=== PATIENT | female | born 1995 | race Two or more races ===

== ENCOUNTER 2024-03-11 10:43 | Outpatient (AMB) | payer MEDICAID, SELFPAY ==
[2024-03-11 10:49] VITALS: BP 101/64; PULSE 73; RESP 18; TEMP 36.3; O2SAT 98; BMI 32.4
--- NOTE | 2024-03-11 10:49 | PD.GSCLVISIT ---
Vital Signs - [facility] 03/11/24 10:49 Height 1.57 m Height Method Stated Weight 80.399 kg Weight Measurement Method Standing Scale BMI 32.4 BP 101/64 Blood Pressure Source Automatic Cuff Blood Pressure Location Right Upper Arm Position Sitting Respiration 18 Pulse 73 Pulse Source Monitor Temp 97.3 F Temp Source Temporal Artery Scan Pulse Oximetry (%) 98 Oxygen Delivery Method Room Air Med/Allergies Allergies & Medications Allergies No Known Allergies Allergy (Verified 03/11/24 10:49) Medication Reconciliation No Known Home Medications 03/11/24 [History] MA Intake Visit Data Collection New Patient or Established: New Patient (never been to [facility]) Seen by Clinical Staff ONLY (RN/MA): No Reason for Visit:: REFERRAL GALLSTONES Pain Present Currently: No Shooter'S Helper Required: No PCP or OBGYN visit in last 3 months: Yes Hx Now: No Do You Feel Safe at Home: Yes Authorities Contacted: N/A Smoking Status Smoking Status: Never smoker Immunization / Flu Flu Vaccine in the Last 12 Months: No Flu Vaccine Exclusion Criteria: Refused by Patient Past Medical History Social History SMOKING STATUS: Smoking status: Never smoker HPI HPI Narrative 28F presenting with symptomatic cholelithiasis. Pt reports for the past year she has had episodes of epigastric pain radiating to the back; she was during initial diagnosis and gave 6 weeks ago. Pt states she continues to have intermittent episodes of severe pain, not always after eating, but denies any nausea/vomiting, diarrhea or fever. Pt underwent abdominal US at [facility] in September 2023 showing gallstones ROS Review of Systems Systems Reviewed: All systems reviewed, normal except as documented Objective/Exam General General Appearance: alert, cooperative and well groomed Resp Respiratory exam: Absent respiratory distress Abdominal Abdominal exam: Present soft; Absent distention or tenderness Results US at [facility] 09/15/23: Multiple shadowing gallstones in a partially contracted gallbladder. Normal gallbladder wall thickness measuring 2.2mm. No pericholecystic fluid. CBD 2mm Assessment & Plan Diagnosis / Problem List (1) Symptomatic cholelithiasis: Status: Acute Assessment & Plan: 28F presenting with symptomatic cholelithiasis. I explained benefits/risks of surgery including need for conversion to open, bleeding, infection, and injury to nearby structures requiring additional procedures or surgery which would require transfer to another facility. 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
== END 2024-03-11 11:17 | disposition home or self-care (01) ==
LOC: HODSRG 10:43
PROVIDERS: PCP Obstetrics & Gynecology; Referring Provider Obstetrics & Gynecology; Supervising Provider Surgery; Visit Provider Surgery
DX: K80.20 Calculus of gallbladder without cholecystitis without obstruction (principal)
CPT/HCPCS: 99203; G0463

== ENCOUNTER 2024-04-29 11:13 | Outpatient (AMB) | payer MEDICAID, SELFPAY ==
--- NOTE | 2024-04-29 11:18 | PD.GSCLVISIT ---
Vital Signs - [facility] 04/29/24 11:20 Height 1.57 m Height Method Stated Weight 79.52 kg Weight Measurement Method Standing Scale BMI 32.2 BP 110/77 Blood Pressure Source Automatic Cuff Blood Pressure Location Left Upper Arm Position Sitting Respiration 19 Pulse 74 Pulse Source Monitor Temp 96.7 F L Temp Source Temporal Artery Scan Pulse Oximetry (%) 98 Oxygen Delivery Method Room Air Med/Allergies Allergies & Medications Allergies No Known Allergies Allergy (Verified 04/29/24 11:21) Medication Reconciliation oxycodone-acetaminophen 5 mg-325 mg tablet (Percocet) 1 tab PO Q6H PRN pain #10 tabs 04/29/24 [Rx] MA Intake Visit Data Collection New Patient or Established: Established Patient (seen at [facility] within 3 years) Seen by Clinical Staff ONLY (RN/MA): No Reason for Visit:: PRE OP Pain Present Currently: No Dental Laboratory Technician Apprentice Required: No PCP or OBGYN visit in last 3 months: Yes Hx Now: No Do You Feel Safe at Home: Yes Authorities Contacted: N/A Smoking Status Smoking Status: Never smoker Immunization / Flu Flu Vaccine in the Last 12 Months: No Flu Vaccine Exclusion Criteria: Refused by Patient Past Medical History Social History SMOKING STATUS: Smoking status: Never smoker HPI HPI Narrative 29F here to discuss surgery for symptomatic cholelithiasis. Pt reports she had severe pain three days ago for which she went to ER but was advised she can follow up as outpt. She denies any other health changes since her last visit ROS Review of Systems Systems Reviewed: All systems reviewed, normal except as documented Objective/Exam General General Appearance: alert, cooperative and well groomed Resp Respiratory exam: Absent respiratory distress Assessment & Plan Diagnosis / Problem List (1) Symptomatic cholelithiasis: Status: Acute Assessment & Plan: 29F with recurrent symptomatic cholelithiasis. I explained benefits/risks of surgery including need for conversion to open, bleeding, infection, injury to nearby structures/biliary leak requiring further procedures or surgery. Pt expressed understanding and would like to proceed. Given that she is from [place] she requested her pain meds be sent ahead of time for ease Office Procedures GNS Level of Care Nursing/Assessment Patient Status: Established Patient Nursing Assessment/Reassesment: Medication Reconciliation, Update PMH in EMR and Vital Signs Coordination of Care: Complex Care and Chronic Disease 1-5, Consent,records obtained, informed consent, Education Simp Pt/Fam and Staff clarify orders Established Patient Charge Established Patient Point Assignment: 85 Established Patient Point Charge: EP Level 3 (80-115) Patient Portal Questionaires Social History Tobacco History Smoking Status: Never smoker Domestic Abuse History Do You Feel Safe at Home: Yes Review of Systems Report any current symptoms Only answer those that you have currently: Past Medical History Past Medical History Have you ever been diagnosed with any of the following:
[2024-04-29 11:20] VITALS: BP 110/77; PULSE 74; RESP 19; TEMP 35.9; O2SAT 98; BMI 32.2
== END 2024-04-29 11:45 | disposition home or self-care (01) ==
LOC: HODSRG 11:13
PROVIDERS: PCP Obstetrics & Gynecology; Referring Provider Obstetrics & Gynecology; Supervising Provider Surgery; Visit Provider Surgery
DX: K80.20 Calculus of gallbladder without cholecystitis without obstruction (principal)
CPT/HCPCS: 99213; G0463

== ENCOUNTER 2024-05-08 07:30 | Day surgery (SDC) | payer MEDICAID, SELFPAY ==
[2024-05-07 08:21] VITALS: BMI 32.5
[2024-05-07 08:56] LABS: Basophils % (Auto) 0 % (0-2.5); Eosinophils # (Auto) 0.3 Thou/mm3 (0.0-0.5); Eosinophils % (Auto) 4 % (0-10); Hematocrit 38.3 % (36.0-46.0); Hemoglobin 12.8 g/dL (12.0-16.0); Immature Granulocytes % (Auto) 0 % (0-0); Immature Granulocytes Auto 0.02 Thou/mm3 (0.00-0.00); Lymphocytes # (Auto) 1.8 Thou/mm3 (1.0-4.8); Lymphocytes % (Auto) 24 % (10-50); Mean Corpuscular HGB Conc 33.4 g/dl (31.0-37.0); Mean Corpuscular Hemoglobin 26.9 pg (25.0-35.0); Mean Corpuscular Volume 81 fL (80-100); Monocytes # (Auto) 0.5 Thou/mm3 (0.0-0.8); Monocytes % (Auto) 6 % (0-12); Neutrophils % (Auto) 66 % (37-80); Nucleated Red Blood Cell % 0 /100 WBC (0); Platelet Count 357 Thou/mm3 (140-440); RDW Standard Deviation 38.4 fL (36.4-46.3); Red Blood Count 4.76 Miln/mm3 (4.00-5.20); White Blood Count 7.6 Thou/mm3 (3.6-11.0)
[2024-05-07 09:06] LABS: Partial Thromboplastin Time 25.6 Seconds (22.0-36.0); Prothrombin Time 10.7 Seconds (9.0-12.2)
[2024-05-07 09:09] LABS: Anion Gap 8 (7-16); BUN/Creatinine Ratio 16 Ratio (12-20); Blood Urea Nitrogen 11 mg/dL (9-23); Calcium 9.6 mg/dL (8.3-10.6); Carbon Dioxide 27.9 mMol/L (20.0-31.0); Chloride 101 mMol/L (98-107); Creatinine (Component) 0.7 mg/dL (0.6-1.3); Estimated Creatinine Clearance 118.9 mL/min (>60); Glucose 73 mg/dL (74-106); HCG,Qualitative Serum Negative; Osmolality,Calculated 272 (275-295); Potassium 3.8 mMol/L (3.4-5.1); Sodium 137 mMol/L (136-145); eGFR > 60 See Note
[2024-05-08] VITALS (8 sets, daily range): BP systolic 113–131; BP diastolic 70–95; PULSE 69–93; RESP 14–20; TEMP 36.2–36.8; O2SAT 97–100; BMI 32.2
--- NOTE | 2024-05-08 10:11 | PD.SUROPNT ---
Date of Procedure 05/08/24 Pre Op Diagnosis Symptomatic cholelithiasis Post Op Diagnosis Same Procedure Laparoscopic cholecystectomy Findings Gallbladder with stones Procedure Description After discussion of risks and benefits, patient was brought to the operating room, SCDs were placed and general anesthesia was induced. She was prepped and draped in the usual sterile fashion and received preoperative antibiotics. After timeout a supraumbilical incision was made with a #15 blade and the skin was elevated while a Veress needle was placed through the incision. Proper positioning was confirmed with a drop test and the abdomen was insufflated to 15 mmHg. At that point the Veress was exchanged for a 5 mm camera using a Visiport technique. There were no signs of injury from the point of entry. 3 additional ports were placed under direct vision, one 12 mm at the epigastrium, one 5 mm right subcostal and one 5 mm right anterior axillary line. Patient was placed in reverse Trendelenburg with left side down. The fundus of the gallbladder was grasped and retracted cephalad and the infundibulum was grasped and retracted laterally. The critical view of safety was achieved and the cystic duct was clipped and transected in the usual fashion. The infundibulum of the gallbladder developed a tear during grasping, so I opted to transect the cystic duct at the site of this cholecystotomy using a 35 mm stapler. The gallbladder was removed from the gallbladder bed using electrocautery. There was a small accessory artery posterior to the cystic artery which was clipped and transected in usual fashion. Hemostasis of the gallbladder bed was achieved with electrocautery.. The specimen was removed in an Endo Catch bag via the epigastric port and the epigastric fascia was closed with 0 Vicryl suture using a Luca-Charito. Pneumoperitoneum was released and ports were removed under direct vision. Incisions were irrigated and infiltrated with half percent Marcaine for a total of 30 cc. Incisions were closed with 4-0 Monocryl and reinforced with Dermabond. Patient was extubated and brought to PACU in stable condition. Pathology / specimen Other (Gallbladder) Estimated Blood Loss 25 Surgeon Marilyn Wilcox MD Surgical Staff Operation Date: 05/08/24 09:45 Case Staff WIRE FENCE ERECTOR: Raheem Nieves RNphp developer: Sheila Bales
--- NOTE | 2024-05-08 10:13 | PD.SURDS ---
Planned Discharge Date 05/08/24 DS: Providers Provider Primary care physician: Ender Herrera MD Attending Provider on Admission: Marilyn Wilcox MD Attending Provider on DC: Marilyn Wilcox MD Discharging Provider: Marilyn Wilcox MD Diagnosis Discharge Diagnosis (1) Symptomatic cholelithiasis: Status: Acute Problem List Completed Was Problem List Reviewed/Reconciled?: Yes Hospital Course Patient presented for scheduled laparoscopic cholecystectomy 05/08 which proceeded without complication Exam Vital Signs Temp Pulse Resp BP Pulse Ox 97.2 F 72 14 113/70 99 05/08/24 08:00 05/08/24 08:00 05/08/24 08:00 05/08/24 08:00 05/08/24 08:00 Discharge Plan Plan Patient Disposition: HOME (Self Care) Prescriptions/Referrals Prescriptions/Med Rec: New oxycodone-acetaminophen [Percocet] 5-325 mg tablet 1 tab PO Q6H MDD 6 tabs PRN (Reason: pain) Qty: 10 0RF Referrals: Ender Herrera MD [Primary Care Provider] - Marilyn Wilcox MD [Physician] - (You will receive a phone call to confirm a follow-up appointment with me in 2 weeks) Patient/Caregiver Discharge Instructions Other Discharge Activity Instructions:: Avoid lifting objects greater than 10 pounds for 6 weeks Your stitches have skin glue on them which will fall off on its own and does not need to be replaced You may resume showering in 2 days, on 05/10 Avoid bathing or swimming for 2 weeks During the surgery we fill your abdomen with air in order to visualize the structures. Some of this air may linger and cause pain that refers to your shoulder and/or pain with deep breaths. This will get better with time. Walking can help the air to absorb faster If you develop worsening pain, nausea/vomiting, fever or jaundice please seek care Education Materials: Anesthesia: General Anesthesia, Surgery Anesthesia After, Cholecystectomy Laparoscopic Dc, Preventing Surgical Site Infections, Skin Adhesive Wound Care Instructions, [facility] [place] Instructions- Tanzanian Print Language: Tanzanian Stand Alone Forms: Sonja Award Info., Patient Portal Info Letter Discharge Order Discharge Orders: Discharge (Routine); Ordered 05/08/24 Ordered By: Marilyn Wilcox Results Results: Laboratory Laboratory results: results reviewed Procedures Procedure Date 05/08/24 Procedures Laparoscopic cholecystectomy
--- NOTE | 2024-05-08 10:17 | SUR.PHASEI ---
1017: Pt. AAOx4, vitals stable, breathing unlabored, no complaint of pain or nausea, x4 dermabond sites to ABD CDI, no active bleed noted, report received from Raheem CRUZ and Michael LANDRUM.
[2024-05-08] MEDS: fentaNYL CIT INJ 50 mCg/ML AMP 2ML IV ×2 (10:27→10:40)
[2024-05-08] MEDS: ONDANSETRON INJ 2 MG/ML INJ 2 ML 4 MG IV (10:49)
[2024-05-08] MEDS: HYDROcodone/APAP 5/325 TABLET 1 TAB PO (10:49)
--- NOTE | 2024-05-08 11:17 | SUR.PHASEII ---
1117: Pt. AAOx4, vitals stable, breathing unlabored, no complaint of pain or nausea, x4 dermabond sites to ABD CDI, no active bleed noted, pt. tolerated sips of soda well, pt. ambulated to wheelchair with steady gait and no assist, no complications. Gave discharge instructions to the pt. and her ride, both verbalized understanding and had no further questions. Pt. left with all personal belongings.
== END 2024-05-08 11:17 | disposition home or self-care (01) ==
PROVIDERS: PCP Family Medicine; Referring Provider Surgery; Visit Provider Surgery
PROC: 0FT44ZZ Resection of Gallbladder, Percutaneous Endoscopic Approach (ICD-10-PCS; CPT 47562; principal; 2024-05-08 09:30)
DX: K80.10 Calculus of gallbladder with chronic cholecystitis without obstruction (principal)
CPT/HCPCS: 47562; 36415; 80048; 84703; 85025; 85610; 85730; A4217; A4649; J0131; J0694; J1100; J1885; J2405; J2704; J2765; J3010; J3490; A9270; J1805

== ENCOUNTER 2024-05-20 11:34 | Outpatient (AMB) | payer MEDICAID, SELFPAY ==
--- NOTE | 2024-05-20 11:43 | GSCOFFNT_ITS ---
Vital Signs - [facility] 05/20/24 11:45 Height 1.57 m Height Method Stated Weight 78.67 kg Weight Measurement Method Standing Scale BMI 31.8 BP 105/72 Blood Pressure Source Automatic Cuff Blood Pressure Location Left Upper Arm Position Sitting Respiration 19 Pulse 85 Pulse Source Monitor Temp 96.9 F Temp Source Temporal Artery Scan Pulse Oximetry (%) 98 Oxygen Delivery Method Room Air Med/Allergies Allergies & Medications Allergies No Known Allergies Allergy (Verified 05/20/24 11:46) Medication Reconciliation ondansetron 4 mg disintegrating tablet 4 mg PO Q6H PRN nausea and vomiting #20 tabs 05/08/24 [Rx Confirmed 05/20/24] oxycodone-acetaminophen 5 mg-325 mg tablet (Percocet) 1 tab PO Q6H PRN pain #10 tabs 05/08/24 [Rx Confirmed 05/20/24] MA Intake Visit Data Collection New Patient or Established: Established Patient (seen at [facility] within 3 years) Seen by Clinical Staff ONLY (RN/MA): No Reason for Visit:: LAB [place] FOLLOW UP Pain Present Currently: No Joint Setter Required: No PCP or OBGYN visit in last 3 months: Yes Hx Now: No Do You Feel Safe at Home: Yes Authorities Contacted: N/A Smoking Status Smoking Status: Never smoker Immunization / Flu Flu Vaccine in the Last 12 Months: No Flu Vaccine Exclusion Criteria: No Exclusion Criteria Past Medical History Past Medical History NEUROLOGIC: Negative Neurological Disorders or Seizures CARDIAC: Negative Cardiac Disorders or Congestive Heart Failure RESPIRATORY: Negative Chronic Obstructive Pulmonary Disease (COPD) GASTROINTESTINAL: Positive Gastrointestinal Disorders and Gall Bladder Disease; Negative Hepatitis GENITOURINARY: Negative Genitourinary Disorders or Renal Disease REPRODUCTIVE: Positive Previous Pregnancies ENDOCRINE: Negative Endocrine Disorders, Diabetes Mellitus Type 1 or Diabetes Mellitus Type 2 HEMATOLOGIC: Negative Blood Disorders OTHER HISTORY: Negative Hospitalization, Autoimmune Disease, Shingles, Blood Transfusions, Blood Transfusion Reaction, Anesthesia Reactions or Cancer Family History FAMILY HISTORY: Positive Family Surgery; Negative Family Psychiatric Problems, Family Respiratory Disorders, Family Cardiac Disorders, Family Gastrointestinal Problems, Family Cancer or Family Anesthesia Reaction Social History SMOKING STATUS: Smoking status: Never smoker ALCOHOL: Alcohol Intake: Never HOUSING: Housing: House HPI HPI Narrative 29F s/p lap [place] 05/08 here for planned follow up. Pt reports feeling well overall with no pain, no nausea, she is eating well and having regular bowel and bladder function. Pt reports she felt well even on POD 0 and denies any fever or jaundice ROS Review of Systems Systems Reviewed: All systems reviewed, normal except as documented Objective/Exam General General Appearance: alert, cooperative and well groomed Resp Respiratory exam: Absent respiratory distress Abdominal Abdominal exam: Present soft and incision (c/d/i, no erythema, no fluctuance or tenderness); Absent distention or tenderness Results Pathology of gallbladder: chronic cholecystitis with cholelithiasis and choles terolosis Assessment & Plan Diagnosis / Problem List (1) Symptomatic cholelithiasis: Status: Acute Assessment & Plan: 29F s/p lap [place] 05/08, recovering well Plan: Follow up as needed Office Procedures GNS Level of Care Nursing/Assessment Patient Status: Established Patient Nursing Assessment/Reassesment: Medication Reconciliation, Update PMH in EMR and Vital Signs Coordination of Care: Complex Care and Chronic Disease 1-5, Consent,records obtained, informed consent, Education Simp Pt/Fam, Results/Orders obtained and Staff clarify orders Established Patient Charge Established Patient Point Assignment: 90 Established Patient Point Charge: EP Level 3 (80-115) Patient Portal Questionaires Social History Living Situation History Housing: House Tobacco History Smoking Status: Never smoker Alcohol History Alcohol Intake: Never Domestic Abuse History Do You Feel Safe at Home: Yes Review of Systems Report any current symptoms Only answer those that you have currently: Past Medical History Past Medical History Have you ever been diagnosed with any of the following: Neurological Problems Seizures: No Cardiology Problems Congestive Heart Failure: No Respiratory Problems Chronic Obstructive Pulmonary Disease (COPD): No Stomache/Intestinal Problems Hepatitis: No Gall Bladder Disease: Yes Genital/Urinary Problems Renal Disease: No Reproductive Problems Previous Pregnancies: Yes Endocrine Problems Diabetes Mellitus Type 1: No Diabetes Mellitus Type 2: No Other Problems Hospitalization: No Autoimmune Disease: No Shingles: No Blood Transfusions: No Blood Transfusion Reaction: No Anesthesia Reactions: No Cancer: No
[2024-05-20 11:45] VITALS: BP 105/72; PULSE 85; RESP 19; TEMP 36.1; O2SAT 98; BMI 31.8
== END 2024-05-20 11:51 | disposition home or self-care (01) ==
PROVIDERS: PCP Family Medicine; Referring Provider Family Medicine; Supervising Provider Surgery; Visit Provider Surgery
DX: Z48.815 Encounter for surgical aftercare following surgery on the digestive system (principal)
CPT/HCPCS: 99213; G0463